=== PATIENT | male | born 1995 | race Caucasian/White ===

== ENCOUNTER 2017-02-15 15:26 | Emergency (ER) | payer MEDICAID ==
[~2017-02-15] VITALS: Ht 180.3 cm; Wt 76.3 kg
[2017-02-15] MEDS ORDERED: ACETAMINOPHEN 500 MG TABLET PO ONE (18:15)
[2017-02-15 19:04] VITALS: BP 131/88
[2017-02-15] MEDS ORDERED: KETOROLAC TROMETHAMINE 30 MG/ML VIAL IM ONE (19:30)
[2017-02-15] MEDS ORDERED: PENICILLIN V POTASSIUM 500 MG TABLET PO ONE (19:30)
== END 2017-02-15 20:09 | disposition home or self-care (01) ==
LOC: EMS 15:29
DX: J02.0 Streptococcal pharyngitis (principal)
CPT/HCPCS: 36415; 86308; 87430; 96372; 99284; J1885